=== PATIENT | female | born 2000 | race Caucasian/White ===

== ENCOUNTER 2022-03-11 21:36 | Emergency (ER) | payer OTHER ==
[~2022-03-11] VITALS: Ht 160 cm; Wt 45.4 kg
[2022-03-11 21:56] VITALS: BP 122/68
--- NOTE | 2022-03-11 22:02 | NUR ---
PT IN RR FOR URINE COLLECTION
--- NOTE | 2022-03-11 22:03 | NUR ---
PT TO BED 9
--- NOTE | 2022-03-11 22:10 | NUR ---
ASSUME CARE OF PT BY BERE CHACON, REPORT GIVEN BY FABIOLA CHACON, PT C/O FEVER 2 DAYS AGO 102, PT C/O SLIGHT VAGINAL BLEED A FEW TIMES A DAY, PT DELEIVERD HER BABY X 1 MONTH AGO, PT WAS INDUCED DUE TO PREECLAMPSIA, PT HAS MUSCLE SPASM PAIN IN HER VAGINAL AREA, STATES HER BREAST MILK WAS YELLOW IN COLOR A FEW DAYS AGO. 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
--- NOTE | 2022-03-11 22:40 | NUR ---
Dr. Graff examining patient.
[2022-03-11 23:01] LABS: BASOPHILS # (AUTO) 0.1 K/uL (0.00-0.22); BASOPHILS % (AUTO) 0.3 % (0.0-2.0); EOSINOPHILS # (AUTO) 0.2 K/uL (0-0.4); EOSINOPHILS % (AUTO) 1.2 % (0.0-4.0); HEMATOCRIT 31.2 % (36-48); HEMOGLOBIN 9.9 g/dL (12.0-16.0); LYMPHOCYTES # (AUTO) 1.7 K/uL (2.5-16.5); LYMPHOCYTES % (AUTO) 10.6 % (20.5-51.1); MEAN CORPUSCULAR HEMOGLOBIN 27 pg (27-31); MEAN CORPUSCULAR HGB CONC 32 g/dL (33-37); MEAN CORPUSCULAR VOLUME 83.8 fL (80-94); MONOCYTES # (AUTO) 0.4 K/uL (0.8-1.0); MONOCYTES % (AUTO) 2.4 % (1.7-9.3); NEUTROPHILS # (AUTO) 13.8 K/uL (1.8-7.7); NEUTROPHILS % (AUTO) 85.5 % (42.2-75.2); PLATELET COUNT (AUTO) 330 K/uL (140-450); RED BLOOD CELL COUNT(AUTO) 3.72 MIL/uL (4.20-5.40); RED CELL DISTRIBUTION WIDTH 15.5 % (11.6-13.7); WHITE BLOOD COUNT (AUTO) 16.1 K/uL (4.5-11.0)
[2022-03-12 00:17] LABS: APPEARANCE,URINE CLEAR (CLEAR); BILIRUBIN,URINE NEGATIVE (NEGATIVE); BLOOD, URINE 2+ (NEGATIVE); COLOR,URINE YELLOW (YELLOW); LEUKOCYTE ESTERASE ,URINE 1+ (NEGATIVE); NITRITE, URINE NEGATIVE (NEGATIVE); UGLUCOSE NEGATIVE (NEGATIVE)
[2022-03-12 00:25] LABS: RBC,URINE 0-5 /HPF (0-5)
[2022-03-12 00:28] VITALS: BP 98/68
[2022-03-12] MEDS ORDERED: CEPH-588 PO (01:18)
[2022-03-12] MEDS ORDERED: ACET-10509 PO (01:18)
[2022-03-12] MEDS ORDERED: cefTRIAXone 1,000 MG in LIDOCAINE MPF 1% 2.1 ML IM ONE (01:20)
[2022-03-12] MEDS ORDERED: cefTRIAXone 1,000 MG VIAL ONE (01:24)
[2022-03-12] MEDS ORDERED: LIDOCAINE MPF 1% 5 ML ONE (01:25)
--- NOTE | 2022-03-12 01:41 | NUR ---
Patient discharged with v/s stable. Written and verbal after care instructions given and explained. Patient alert, oriented and verbalized understanding of instructions. Ambulatory with steady gait. All questions addressed prior to discharge. ID band removed. Patient advised to follow up with PMD. Rx of KEFLEX AND TYLENOL given. Patient educated on indication of medication including possible reaction and side effects. Opportunity to ask questions provided and answered.
== END 2022-03-12 01:41 | disposition home or self-care (01) ==
LOC: MED 21:36
DX: N61.0 Mastitis without abscess (principal); N39.0 Urinary tract infection, site not specified; Z79.899 Other long term (current) drug therapy
CPT/HCPCS: 36415; 81001; 81025; 85025; 87086; 96372; 99283; J0696; J2001

== ENCOUNTER 2022-05-03 18:37 | Emergency (ER) | payer OTHER ==
[~2022-05-03] VITALS: Ht 160 cm; Wt 47.6 kg
[~2022-05-03 18:37] MED LIST: ACET-10509 PO; CEPH-588 PO
[2022-05-03 19:20] VITALS: BP 116/75
--- NOTE | 2022-05-03 19:28 | NUR ---
TO LOBBY A/W BED AMBULATORY
--- NOTE | 2022-05-03 21:20 | NUR ---
SWABS FOR VAL, INFLUENZA SENT TO LAB
--- NOTE | 2022-05-03 21:37 | NUR ---
PT TO BED 6
[2022-05-03] MEDS ORDERED: KETOROLAC 30 MG/ML VIAL IVP ONE (22:10)
[2022-05-03] MEDS ORDERED: NACL 0.9% 1,000 ML IV ONE (22:10)
--- NOTE | 2022-05-03 22:50 | NUR ---
Dr. Langston examining patient.
[2022-05-03] MEDS ORDERED: PRED50TA2 PO (23:08)
[2022-05-03] MEDS ORDERED: ALBU0.0912 INH (23:14)
[2022-05-03 23:24] VITALS: BP 122/76
== END 2022-05-03 23:25 | disposition home or self-care (01) ==
LOC: MED 18:37
DX: R05.9 Cough, unspecified (principal); Z20.822 Contact with and (suspected) exposure to COVID-19; J45.909 Unspecified asthma, uncomplicated
CPT/HCPCS: 87426; 87804; 99283; J1885; J7030